=== PATIENT | male | born 1950 | race African-American/Black ===

== ENCOUNTER 2019-06-15 08:00 | Inpatient (IN) ==
[2019-06-15] MEDS ORDERED: DEXTROSE 10% 250 ML BAG IV PRN (09:16)
[2019-06-15] MEDS ORDERED: GLUCAGON 1 MG VIAL IM PRN ×2 (09:16)
[2019-06-15] MEDS ORDERED: DEXTROSE 50% 25 GM/50 ML VIAL IV PRN (09:16)
[2019-06-15] MEDS ORDERED: oxyCODONE/ACETAMINOPHEN 5-325 MG TABLET PO PRN (09:25)
[2019-06-15] MEDS ORDERED: SODIUM CHLORIDE 0.9% 1,000 ML IV SCH (09:30)
[2019-06-15 11:26] LABS: Basophils % 0.4 % (0.0-0.8); Eosinophils % 0.4 % (0.00-10.9); Hematocrit 32.5 VOL% (42.0-52.0); Hemoglobin 9.8 GM/DL (14.0-18.0); Immature Granulocytes % 0.6 %; Immature Granulocytes Absolute 0.06 #; Lymphocytes # 0.8 10*3/uL (1.4-4.0); Lymphocytes % 7.5 % (21.2-54.2); Mean Corpuscular HGB Conc 30.2 GM/DL (32-36); Mean Corpuscular Volume 83.5 FL (87-102); Mean Platelet Volume 9.9 FL (9.6-12.0); Monocytes % 10.1 % (1.7-12.7); NRBC # 0.02 10*3/uL; Platelet Count 334 T/CUMM (130-400); Red Blood Count 3.89 MC/CUMM (3.8-5.5); Red Cell Distribution Width 15.8 % (9.3-17.3); White Blood Count 10.6 T/CUMM (4-12)
[2019-06-15 11:50] LABS: Albumin 2.1 G/DL (3.4-5.0); Bilirubin,Total 0.5 MG/DL (0.2-1.0); Calcium 8.6 MG/DL (8.5-10.1); Osmolality,Calculated 289.8 MOS/KG (273-304); Total Protein 7.2 G/DL (6.4-8.3)
[2019-06-15 12:56] LABS: ABG Base Excess 0.8 MMOL/L (-2.5-2.5); ABG HCO3 25.1 MMOL/L (20-26); ABG Oxygen Saturation 95.4 % (95-100); ABG PCO2 37.4 MM HG (35-48); ABG PH 7.431 (7.35-7.45); ABG PO2 76.2 MM HG (80-95); ABG TCO2 22.7 MMOL/L (23-27); Allen Test Positive; Pt O2 Delivery Device BIPAP
[2019-06-15] MEDS ORDERED: AMPICILLIN/SULBACTAM 3,000 MG in SODIUM CHLORIDE 0.9% 100 ML IV SCH (15:00)
[2019-06-15] MEDS: GABAPENTIN 300 MG CAPSULE PO SCH ×2 (19:07→21:53)
[2019-06-15] MEDS: AMPICILLIN/SULBACTAM 3,000 MG in SODIUM CHLORIDE 0.9% 100 ML IV SCH (21:53)
[2019-06-15] MEDS: LATANOPROST 0.005% OPH SOLN 2.5 ML BOTTLE BOTH EYES SCH (21:53)
[2019-06-16] MEDS: AMPICILLIN/SULBACTAM 3,000 MG in SODIUM CHLORIDE 0.9% 100 ML IV SCH ×4 (03:30→21:12)
[2019-06-16] MEDS: GABAPENTIN 300 MG CAPSULE PO SCH ×3 (08:48→21:14)
[2019-06-16] MEDS: lisinopriL 20 MG TABLET PO SCH (08:48)
[2019-06-16] MEDS: amLODIPine 10 MG TABLET PO SCH (08:48)
[2019-06-16] MEDS: ATORVASTATIN 10 MG TABLET PO SCH (08:48)
[2019-06-16] MEDS: CHLORHEXIDINE 4% SOLN 118 ML BOTTLE TOP SCH ×2 (14:11→21:12)
[2019-06-16 16:26] LABS: Troponin I 8.04 NG/ML (0.00-0.045)
[2019-06-16] MEDS: LATANOPROST 0.005% OPH SOLN 2.5 ML BOTTLE BOTH EYES SCH (21:13)
[2019-06-16] MEDS: CHLORHEXIDINE 0.12% ORAL RINSE 60 ML BOTTLE SWISH/SPIT SCH (21:14)
[2019-06-16] MEDS ORDERED: ETOMIDATE 20 MG/10 ML VIAL IV ONE (23:49)
[2019-06-17] MEDS: AMPICILLIN/SULBACTAM 3,000 MG in SODIUM CHLORIDE 0.9% 100 ML IV SCH ×4 (03:25→21:14)
[2019-06-17 05:45] LABS: Basophils % 0.2 % (0.0-0.8); Eosinophils # 0.1 10*3/uL (0.0-0.87); Eosinophils % 1.2 % (0.00-10.9); Hematocrit 31.8 VOL% (42.0-52.0); Hemoglobin 9.3 GM/DL (14.0-18.0); Immature Granulocytes % 0.6 %; Immature Granulocytes Absolute 0.06 #; Lymphocytes # 0.7 10*3/uL (1.4-4.0); Lymphocytes % 7.3 % (21.2-54.2); Mean Corpuscular HGB Conc 29.2 GM/DL (32-36); Mean Corpuscular Volume 86.2 FL (87-102); Mean Platelet Volume 10.3 FL (9.6-12.0); Monocytes % 8.5 % (1.7-12.7); Neutrophils % 82.2 % (38.7-73.9); Platelet Count 254 T/CUMM (130-400); Red Blood Count 3.69 MC/CUMM (3.8-5.5); Red Cell Distribution Width 15.9 % (9.3-17.3); White Blood Count 9.2 T/CUMM (4-12)
[2019-06-17 06:03] LABS: Calcium 8.4 MG/DL (8.5-10.1); Osmolality,Calculated 296.8 MOS/KG (273-304)
[2019-06-17] MEDS ORDERED: CEFUROXIME INJ 1,500 MG in SODIUM CHLORIDE 0.9% 100 ML IV ONE (06:30)
[2019-06-17] MEDS: amLODIPine 10 MG TABLET PO SCH (09:33)
[2019-06-17] MEDS: CHLORHEXIDINE 4% SOLN 118 ML BOTTLE TOP SCH (09:33)
[2019-06-17] MEDS: ATORVASTATIN 10 MG TABLET PO SCH (09:33)
[2019-06-17] MEDS: lisinopriL 20 MG TABLET PO SCH (09:33)
[2019-06-17] MEDS: GABAPENTIN 300 MG CAPSULE PO SCH ×3 (09:33→20:56)
[2019-06-17] MEDS: CHLORHEXIDINE 0.12% ORAL RINSE 60 ML BOTTLE SWISH/SPIT SCH ×2 (09:34→20:56)
[2019-06-17] MEDS: SODIUM CHLORIDE 0.9% 1,000 ML IV SCH (09:34)
[2019-06-17] MEDS: LATANOPROST 0.005% OPH SOLN 2.5 ML BOTTLE BOTH EYES SCH (20:56)
[2019-06-18] MEDS: AMPICILLIN/SULBACTAM 3,000 MG in SODIUM CHLORIDE 0.9% 100 ML IV SCH ×3 (03:55→15:40)
[2019-06-18] MEDS ORDERED: VANCOMYCIN 500 MG VIAL ONE (05:45)
[2019-06-18] MEDS ORDERED: PAPAVERINE 60 MG/2 ML VIAL ONE (05:45)
[2019-06-18] MEDS ORDERED: VANCOMYCIN 1,000 MG VIAL ONE ×3 (05:46→10:53)
[2019-06-18] MEDS ORDERED: FAMOTIDINE 20 MG TABLET PO ONE (06:00)
[2019-06-18] MEDS ORDERED: DIAZEPAM 5 MG TABLET PO ONE (06:00)
[2019-06-18] MEDS ORDERED: CEFUROXIME INJ 1,500 MG in SYRINGE 1 EACH IV ONE (06:00)
[2019-06-18 07:52] LABS: VBG PH 7.414
[2019-06-18 07:53] LABS: VBG Base Excess 1.6 MEQ/L (0-4); VBG HCO3 25.3 MEQ/L (24-28)
[2019-06-18 07:54] LABS: VBG Oxygen Saturation 62.6 %
[2019-06-18 07:55] LABS: Hematocrit Heart Surgery 27.4 PERCENT (42-52); Hemoglobin Heart Surgery 8.8 G/DL (14.0-18.0); PH Patient Temp Venous 7.414; Potassium Heart/CVR 3.8 MMOL/L (3.5-5.1); VBG Inspired Oxygen 61.3 PERCENT (0-100)
[2019-06-18] MEDS: lisinopriL 20 MG TABLET PO SCH (09:00)
[2019-06-18] MEDS ORDERED: SODIUM HYPOCHLORITE 0.25% IRRIG 473 ML BOTTLE TOP SCH (09:00)
[2019-06-18] MEDS ORDERED: CHLORHEXIDINE 4% SOLN 118 ML BOTTLE TOP SCH (09:00)
[2019-06-18] MEDS: amLODIPine 10 MG TABLET PO SCH (09:00)
[2019-06-18] MEDS: SODIUM CHLORIDE 0.9% 1,000 ML IV SCH (09:00)
[2019-06-18] MEDS: GABAPENTIN 300 MG CAPSULE PO SCH (09:00)
[2019-06-18] MEDS: CHLORHEXIDINE 0.12% ORAL RINSE 60 ML BOTTLE SWISH/SPIT SCH ×2 (09:00→22:02)
[2019-06-18] MEDS: ATORVASTATIN 10 MG TABLET PO SCH (09:00)
[2019-06-18 09:09] LABS: Hematocrit Heart Surgery 17.4 PERCENT (42-52); Hemoglobin Heart Surgery 5.5 G/DL (14.0-18.0); PCO2 Patient Temp Venous 27.1 MM HG; PH Patient Temp Venous 7.578; PO2 Patient Temp Venous 31.4 MM HG; Potassium Heart/CVR 4.4 MMOL/L (3.5-5.1); VBG Base Excess 3.5 MEQ/L (0-4); VBG HCO3 27.4 MEQ/L (24-28); VBG Oxygen Saturation 77.3 %; VBG PCO2 31.3 MMHG (41-51); VBG PH 7.532; VBG PO2 38.7 MMHG (17-40)
[2019-06-18 09:30] LABS: Hematocrit Heart Surgery 18.5 PERCENT (42-52); PCO2 Patient Temp Venous 31.2 MM HG; PH Patient Temp Venous 7.538; Potassium Heart/CVR 4.1 MMOL/L (3.5-5.1); VBG HCO3 27.9 MEQ/L (24-28); VBG Oxygen Saturation 80.4 %; VBG PCO2 34.4 MMHG (41-51); VBG PH 7.508; VBG PO2 41.3 MMHG (17-40)
[2019-06-18 09:31] LABS: Hemoglobin Heart Surgery 5.9 G/DL (14.0-18.0)
[2019-06-18] MEDS ORDERED: SODIUM BICARBONATE 50 MEQ/50 ML VIAL IV ONE ×9 (10:15→21:28)
[2019-06-18] MEDS ORDERED: DEXTROSE 5% KCL 20 MEQ 20 MEQ/1,000 ML BAG IV ONE (10:15)
[2019-06-18] MEDS ORDERED: MANNITOL 100 GM/500 ML BAG IV ONE (10:15)
[2019-06-18] MEDS ORDERED: LIDOCAINE 2% 5 ML VIAL ONE (10:15)
[2019-06-18] MEDS ORDERED: FUROSEMIDE 20 MG/2 ML VIAL ONE (10:16)
[2019-06-18] MEDS ORDERED: methylPREDNISolone SOD SUC 1,000 MG/8 ML VIAL ONE (10:16)
[2019-06-18] MEDS ORDERED: PROTAMINE SULFATE 250 MG/25 ML VIAL IV ONE (10:16)
[2019-06-18] MEDS ORDERED: PROTAMINE SULFATE 50 MG/5 ML VIAL IV ONE (10:16)
[2019-06-18] MEDS ORDERED: ALBUMIN 25% 25 GM/100 ML VIAL IV ONE (10:16)
[2019-06-18] MEDS ORDERED: HEPARIN 10,000 UNIT/10 ML VIAL ONE (10:16)
[2019-06-18] MEDS ORDERED: MAGNESIUM SULFATE 5 GM/10 ML VIAL IV ONE (10:16)
[2019-06-18] MEDS ORDERED: NITROPRUSSIDE 50 MG/2 ML VIAL ONE (10:21)
[2019-06-18] MEDS ORDERED: PHENYLEPHRINE DRIP 40 MG/250 ML PREMIX IV ONE (10:21)
[2019-06-18] MEDS ORDERED: CALCIUM CHLORIDE 1,000 MG/10 ML SYRINGE IV ONE ×2 (10:21→14:10)
[2019-06-18] MEDS ORDERED: POTASSIUM CHLORIDE RIDER 100 ML IV ONE (10:21)
[2019-06-18 10:23] LABS: ABG Base Excess 1.7 MMOL/L (-2.5-2.5); ABG PCO2 27.2 MM HG (35-48); ABG PH 7.548 (7.35-7.45); Glucose Heart Surgery 306 MG/DL (74-106); Hematocrit Heart Surgery 24.6 PERCENT (42-52); Hemoglobin Heart Surgery 7.9 G/DL (14.0-18.0); Ionized Calcium Arterial 1.33 MMOL/L (1.21-1.46); PCO2 Patient Temp Arterial 27.2 MMHG; PH Patient Temp Arterial 7.548; Patient Temperature 37 CELCIUS; Potassium Heart/CVR 3.9 MMOL/L (3.5-5.1); Sodium Heart/CVR 144 MMOL/L (135-145)
[2019-06-18] MEDS: LACTATED RINGERS 250 ML IV PRN ×4 (11:25→12:00)
[2019-06-18] MEDS: PHENYLEPHRINE DRIP 40 MG/250 ML PREMIX IV PRN ×3 (11:25→15:30)
[2019-06-18] MEDS: DOBUTamine 500 MG/250 ML PREMIX IV PRN (11:25)
[2019-06-18] MEDS: SODIUM CHLORIDE 0.45% 1,000 ML IV SCH (11:25)
[2019-06-18] MEDS ORDERED: ONDANSETRON 4 MG/2 ML VIAL IV PRN (11:46)
[2019-06-18] MEDS ORDERED: MAGNESIUM SULF RIDER 4 GM in PREMIX 1 EACH IV PRN (11:46)
[2019-06-18] MEDS ORDERED: POTASSIUM CHLORIDE RIDER 10 MEQ in PREMIX 1 EACH IV PRN (11:46)
[2019-06-18] MEDS ORDERED: NITROPRUSSIDE 100 MG in DEXTROSE 5% 250 ML IV PRN (11:46)
[2019-06-18] MEDS ORDERED: ACETAMINOPHEN 650 MG SUPP RECTAL PRN (11:46)
[2019-06-18] MEDS ORDERED: VECURONIUM 10 MG VIAL IV PRN ×2 (11:46)
[2019-06-18] MEDS ORDERED: DEXTROSE 10% 250 ML BAG IV PRN (11:46)
[2019-06-18] MEDS ORDERED: MAGNESIUM SULF RIDER 2 GM in PREMIX 1 EACH IV PRN (11:46)
[2019-06-18] MEDS ORDERED: CALCIUM CHLORIDE 1,000 MG/10 ML SYRINGE IV PRN (11:46)
[2019-06-18] MEDS ORDERED: MIDAZOLAM 10 MG/2 ML VIAL IV PRN (11:46)
[2019-06-18] MEDS ORDERED: SODIUM CHLORIDE 0.45% 1,000 ML IV SCH (11:46)
[2019-06-18] MEDS ORDERED: MORPHINE 10 MG/1 ML VIAL IV PRN (11:46)
[2019-06-18] MEDS ORDERED: INSULIN REGULAR 100 UNIT/ML IV ONE (11:46)
[2019-06-18] MEDS ORDERED: MIDAZOLAM 2 MG/2 ML VIAL IV PRN (11:46)
[2019-06-18] MEDS ORDERED: CHLORHEXIDINE 4% SOLN 118 ML BOTTLE TOP PRN (11:46)
[2019-06-18] MEDS ORDERED: MORPHINE 4 MG/1 ML VIAL IV PRN (11:46)
[2019-06-18] MEDS: ALBUMIN 5% 12.5 GM in PREMIX 1 EACH IV PRN ×2 (12:00→12:10)
[2019-06-18] MEDS ORDERED: ALBUMIN 5% 12.5 GM/250 ML VIAL IV ONE (12:00)
[2019-06-18 12:12] LABS: ABG Base Excess -3.9 MMOL/L (-2.5-2.5); ABG HCO3 21.1 MMOL/L (20-26); ABG Oxygen Saturation 99.7 % (95-100); ABG PCO2 35.9 MM HG (35-48); ABG PH 7.373 (7.35-7.45); ABG TCO2 19.8 MMOL/L (23-27); Glucose Heart Surgery 280 MG/DL (74-106); Hemoglobin Heart Surgery 6.7 G/DL (14.0-18.0); Potassium Heart/CVR 3.5 MMOL/L (3.5-5.1)
[2019-06-18] MEDS ORDERED: DOBUTamine 500 MG/250 ML PREMIX IV ONE (12:27)
[2019-06-18] MEDS ORDERED: CALCIUM CHLORIDE 1,000 MG/10 ML VIAL IV ONE (12:27)
[2019-06-18] MEDS ORDERED: SUFentanil 250 MCG/5 ML AMP ONE (12:27)
[2019-06-18] MEDS ORDERED: PHENYLEPHRINE DRIP 20 MG/250 ML PREMIX IV ONE (12:27)
[2019-06-18] MEDS ORDERED: SEVOFLURANE 1 UNIT/15 MINUTE INH ONE (12:27)
[2019-06-18 12:28] LABS: CKMB % 4.3 %
[2019-06-18] MEDS ORDERED: AMINOCAPROIC ACID 5,000 MG/20 ML VIAL ONE (12:28)
[2019-06-18] MEDS ORDERED: MIDAZOLAM 10 MG/2 ML VIAL ONE (12:28)
[2019-06-18] MEDS ORDERED: NITROGLYCERIN DRIP 50 MG/250 ML BOTTLE IV ONE (12:28)
[2019-06-18] MEDS ORDERED: ETOMIDATE 40 MG/20 ML VIAL IV ONE (12:28)
[2019-06-18] MEDS ORDERED: AMIODARONE 150 MG/3 ML VIAL ONE (12:28)
[2019-06-18] MEDS ORDERED: VECURONIUM 10 MG VIAL IV ONE (12:28)
[2019-06-18] MEDS ORDERED: LACTATED RINGERS 1,000 ML IV ONE ×2 (12:29→13:00)
[2019-06-18] MEDS ORDERED: SODIUM CHLORIDE 0.9% 250 ML IV ONE (12:29)
[2019-06-18] MEDS ORDERED: SODIUM CHLORIDE 0.9% 100 ML IV ONE (12:29)
[2019-06-18] MEDS ORDERED: SODIUM CHLORIDE 0.9% 1,000 ML IV ONE (12:29)
[2019-06-18 12:34] LABS: Albumin 1.8 G/DL (3.4-5.0); Bilirubin,Total 1.2 MG/DL (0.2-1.0); Calcium 8.6 MG/DL (8.5-10.1); Osmolality,Calculated 300.6 MOS/KG (273-304); Total Protein 4.7 G/DL (6.4-8.3)
[2019-06-18 12:38] LABS: Troponin I 8.03 NG/ML (0.00-0.045)
[2019-06-18] MEDS ORDERED: HEPARIN/NACL 0.9% 2 UNITS/ML 500 ML IV ONE (12:47)
[2019-06-18] MEDS ORDERED: methylPREDNISolone SOD SUC 125 MG/2 ML VIAL ONE (13:00)
[2019-06-18] MEDS ORDERED: diphenhydrAMINE 50 MG/1 ML VIAL IV ONE (13:00)
[2019-06-18] MEDS ORDERED: LACTATED RINGERS 1,000 ML IV PRN (13:00)
[2019-06-18] MEDS ORDERED: methylPREDNISolone SOD SUC 125 MG/2 ML VIAL IV ONE ×2 (13:00→14:45)
[2019-06-18] MEDS ORDERED: diphenhydrAMINE 50 MG/1 ML VIAL ONE (13:01)
[2019-06-18] MEDS ORDERED: EPINEPHrine 1 MG/10 ML SYRINGE ONE (13:02)
[2019-06-18] MEDS ORDERED: EPINEPHrine 1 MG/ML VIAL ONE (13:05)
[2019-06-18 13:20] LABS: ABG Base Excess -8.4 MMOL/L (-2.5-2.5); ABG HCO3 17.6 MMOL/L (20-26); ABG Oxygen Saturation 96.6 % (95-100); ABG PCO2 42.4 MM HG (35-48); ABG PH 7.246 (7.35-7.45); ABG PO2 93.1 MM HG (80-95); ABG TCO2 17.4 MMOL/L (23-27); Glucose Heart Surgery 308 MG/DL (74-106); Hematocrit Heart Surgery 26.3 PERCENT (42-52); Hemoglobin Heart Surgery 8.4 G/DL (14.0-18.0); Potassium Heart/CVR 3.6 MMOL/L (3.5-5.1)
[2019-06-18] MEDS ORDERED: EPINEPHrine 1 MG/10 ML SYRINGE IV ONE (13:42)
[2019-06-18 13:49] LABS: Hematocrit 25.9 VOL% (42.0-52.0); Immature Granulocytes % 2.1 %; Immature Granulocytes Absolute 0.03 #; Lymphocytes # 0.2 10*3/uL (1.4-4.0); Lymphocytes % 15.6 % (21.2-54.2); Mean Corpuscular Volume 85.2 FL (87-102); Mean Platelet Volume 9.3 FL (9.6-12.0); Monocytes % 2.1 % (1.7-12.7); NRBC # 0.06 10*3/uL; Neutrophils % 80.2 % (38.7-73.9); Platelet Count 139 T/CUMM (130-400); Red Blood Count 3.04 MC/CUMM (3.8-5.5); Red Cell Distribution Width 15.9 % (9.3-17.3); White Blood Count 1.4 T/CUMM (4-12)
[2019-06-18] MEDS ORDERED: AMIODARONE 450 MG/9 ML VIAL IV ONE (13:55)
[2019-06-18 13:56] LABS: Hemoglobin 8.3 GM/DL (14.0-18.0)
[2019-06-18] MEDS ORDERED: AMIODARONE INJ 450 MG in DEXTROSE 5% 241 ML IV SCH (14:00)
[2019-06-18 14:10] LABS: ABG Base Excess -4.6 MMOL/L (-2.5-2.5); ABG HCO3 20.5 MMOL/L (20-26); ABG Oxygen Saturation 93.6 % (95-100); ABG PCO2 47.3 MM HG (35-48); ABG PH 7.278 (7.35-7.45); ABG PO2 72.5 MM HG (80-95); ABG TCO2 20.7 MMOL/L (23-27); Glucose Heart Surgery 310 MG/DL (74-106); Hemoglobin Heart Surgery 8.7 G/DL (14.0-18.0); INR 1.7; PT Patient Result 17.8 SECS (9.8-11.9); Partial Thromboplastin Time 40.7 SECS (20.8-36.0); Potassium Heart/CVR 3.2 MMOL/L (3.5-5.1)
[2019-06-18] MEDS: POTASSIUM CHLORIDE RIDER 20 MEQ in PREMIX 1 EACH IV PRN ×4 (14:20→21:32)
[2019-06-18 14:56] LABS: ABG Base Excess -8.6 MMOL/L (-2.5-2.5); ABG HCO3 17.4 MMOL/L (20-26); ABG Oxygen Saturation 94.2 % (95-100); ABG PCO2 39.7 MM HG (35-48); ABG PH 7.262 (7.35-7.45); ABG PO2 76.5 MM HG (80-95); ABG TCO2 16.9 MMOL/L (23-27); Glucose Heart Surgery 304 MG/DL (74-106); Hematocrit Heart Surgery 25.3 PERCENT (42-52); Hemoglobin Heart Surgery 8.1 G/DL (14.0-18.0); Potassium Heart/CVR 3.8 MMOL/L (3.5-5.1)
[2019-06-18] MEDS: SODIUM BICARB INJ 150 MEQ in STERILE WATER INJ 850 ML IV SCH ×2 (15:20→22:01)
[2019-06-18 15:43] LABS: Band Neutrophils 22 % (0-10); Lymphocytes 18 % (20-55); Nucleated Red Blood Cells 3 (0-5); Platelet Estimate Adequate; Segmented Neutrophils 54 % (50-85); Total Cells Counted 100
[2019-06-18 15:44] LABS: Microcytosis Slight; Polychromasia 1+
[2019-06-18] MEDS: INSULIN REGULAR DRIP 100 ML IV SCH ×3 (15:52→23:12)
[2019-06-18] MEDS ORDERED: GENTAMICIN INJ 120 MG in PREMIX 1 EACH IV SCH (16:00)
[2019-06-18] MEDS: INSULIN REGULAR 100 UNIT/ML IV PRN ×5 (16:17→23:13)
[2019-06-18] MEDS: PIPERACILLIN/TAZOBACTAM 3,375 MG in SODIUM CHLORIDE 0.9% 100 ML IV SCH (16:30)
[2019-06-18] MEDS ORDERED: FUROSEMIDE 40 MG/4 ML VIAL IV ONE ×2 (16:57→22:00)
[2019-06-18] MEDS: PHENYLEPHRINE INJ 160 MG in SODIUM CHLORIDE 0.9% 234 ML IV PRN (17:20)
[2019-06-18] MEDS: CLINDAMYCIN INJ 600 MG in PREMIX 1 EACH IV SCH ×2 (17:25→23:28)
[2019-06-18 17:39] LABS: ABG Base Excess -13.6 MMOL/L (-2.5-2.5); ABG HCO3 13.8 MMOL/L (20-26); ABG Oxygen Saturation 90.1 % (95-100); ABG PCO2 41.5 MM HG (35-48); ABG PO2 72.1 MM HG (80-95); ABG TCO2 13.9 MMOL/L (23-27); Glucose Heart Surgery 328 MG/DL (74-106); Hematocrit Heart Surgery 29.7 PERCENT (42-52); Hemoglobin Heart Surgery 9.6 G/DL (14.0-18.0); Potassium Heart/CVR 3.7 MMOL/L (3.5-5.1)
[2019-06-18 17:41] LABS: ABG PH 7.155 (7.35-7.45)
[2019-06-18 18:54] LABS: ABG HCO3 14.9 MMOL/L (20-26); ABG Oxygen Saturation 91.5 % (95-100); ABG PCO2 33.5 MM HG (35-48); ABG PH 7.244 (7.35-7.45); ABG PO2 67.5 MM HG (80-95); ABG TCO2 13.6 MMOL/L (23-27); Glucose Heart Surgery 292 MG/DL (74-106); Hematocrit Heart Surgery 28.4 PERCENT (42-52); Hemoglobin Heart Surgery 9.2 G/DL (14.0-18.0); Potassium Heart/CVR 3.4 MMOL/L (3.5-5.1)
[2019-06-18] MEDS: NOREPINEPHRINE 16 MG in SODIUM CHLORIDE 0.9% 234 ML IV PRN (19:15)
[2019-06-18] MEDS: CEFUROXIME INJ 1,500 MG in SYRINGE 1 EACH IV SCH (20:12)
[2019-06-18 21:22] LABS: ABG Base Excess -8.8 MMOL/L (-2.5-2.5); ABG HCO3 17.3 MMOL/L (20-26); ABG Oxygen Saturation 95.2 % (95-100); ABG PCO2 32.7 MM HG (35-48); ABG PH 7.313 (7.35-7.45); ABG PO2 76.7 MM HG (80-95); ABG TCO2 15.2 MMOL/L (23-27); Glucose Heart Surgery 255 MG/DL (74-106); Hematocrit Heart Surgery 31.4 PERCENT (42-52); Hemoglobin Heart Surgery 10.1 G/DL (14.0-18.0); Potassium Heart/CVR 3.2 MMOL/L (3.5-5.1)
[2019-06-18 22:01] LABS: CKMB % 5.5 %
[2019-06-18 22:06] LABS: Troponin I 42.2 NG/ML (0.00-0.045)
[2019-06-18] MEDS: AMIODARONE INJ 450 MG in DEXTROSE 5% 241 ML IV SCH (22:06)
[2019-06-18 23:07] LABS: ABG Base Excess -5.4 MMOL/L (-2.5-2.5); ABG Oxygen Saturation 96.5 % (95-100); ABG PCO2 31.8 MM HG (35-48); ABG PH 7.382 (7.35-7.45); ABG PO2 78.8 MM HG (80-95); ABG TCO2 17.3 MMOL/L (23-27); Glucose Heart Surgery 230 MG/DL (74-106); Hematocrit Heart Surgery 30.3 PERCENT (42-52); Hemoglobin Heart Surgery 9.8 G/DL (14.0-18.0); Potassium Heart/CVR 3.4 MMOL/L (3.5-5.1)
[2019-06-19] MEDS: PIPERACILLIN/TAZOBACTAM 3,375 MG in SODIUM CHLORIDE 0.9% 100 ML IV SCH ×3 (00:09→17:12)
[2019-06-19] MEDS: INSULIN REGULAR 100 UNIT/ML IV PRN ×2 (00:09→02:20)
[2019-06-19] MEDS: PHENYLEPHRINE INJ 160 MG in SODIUM CHLORIDE 0.9% 234 ML IV PRN ×3 (00:48→20:54)
[2019-06-19 01:12] LABS: ABG Base Excess -2.8 MMOL/L (-2.5-2.5); ABG HCO3 22.1 MMOL/L (20-26); ABG Oxygen Saturation 96.9 % (95-100); ABG PCO2 30.8 MM HG (35-48); ABG PH 7.435 (7.35-7.45); ABG PO2 78.7 MM HG (80-95); ABG TCO2 18.8 MMOL/L (23-27); Glucose Heart Surgery 192 MG/DL (74-106); Hematocrit Heart Surgery 30.4 PERCENT (42-52); Hemoglobin Heart Surgery 9.8 G/DL (14.0-18.0); Potassium Heart/CVR 3.4 MMOL/L (3.5-5.1)
[2019-06-19] MEDS: POTASSIUM CHLORIDE RIDER 20 MEQ in PREMIX 1 EACH IV PRN ×3 (01:36→05:26)
[2019-06-19] MEDS ORDERED: FUROSEMIDE 40 MG/4 ML VIAL IV ONE ×3 (02:00→16:57)
[2019-06-19] MEDS: INSULIN REGULAR DRIP 100 ML IV SCH ×2 (02:18→12:21)
[2019-06-19 03:07] LABS: Basophils % 0.2 % (0.0-0.8); Hematocrit 30.2 VOL% (42.0-52.0); Hemoglobin 9.7 GM/DL (14.0-18.0); Immature Granulocytes % 1.3 %; Immature Granulocytes Absolute 0.21 #; Lymphocytes # 0.1 10*3/uL (1.4-4.0); Lymphocytes % 0.6 % (21.2-54.2); Mean Corpuscular HGB Conc 32.1 GM/DL (32-36); Mean Corpuscular Volume 84.1 FL (87-102); Mean Platelet Volume 9.7 FL (9.6-12.0); Monocytes % 0.4 % (1.7-12.7); NRBC # 0.51 10*3/uL; Neutrophils % 97.5 % (38.7-73.9); Platelet Count 106 T/CUMM (130-400); Red Blood Count 3.59 MC/CUMM (3.8-5.5); Red Cell Distribution Width 16.1 % (9.3-17.3); White Blood Count 16.1 T/CUMM (4-12)
[2019-06-19 03:08] LABS: ABG Base Excess -1.1 MMOL/L (-2.5-2.5); ABG HCO3 23.4 MMOL/L (20-26); ABG Oxygen Saturation 96.9 % (95-100); ABG PCO2 31.2 MM HG (35-48); ABG PH 7.457 (7.35-7.45); ABG PO2 77.8 MM HG (80-95); Glucose Heart Surgery 144 MG/DL (74-106); Hematocrit Heart Surgery 30.6 PERCENT (42-52); Hemoglobin Heart Surgery 9.9 G/DL (14.0-18.0)
[2019-06-19 03:25] LABS: Albumin 1.7 G/DL (3.4-5.0); Bilirubin,Direct 3.12 MG/DL (0.0-0.20); Bilirubin,Total 4.1 MG/DL (0.2-1.0); Calcium 8.1 MG/DL (8.5-10.1); Osmolality,Calculated 305.9 MOS/KG (273-304); Total Protein 4.3 G/DL (6.4-8.3)
[2019-06-19 03:43] LABS: CKMB % 5.8 %
[2019-06-19] MEDS: SODIUM BICARB INJ 150 MEQ in STERILE WATER INJ 850 ML IV SCH ×4 (04:27→17:48)
[2019-06-19 05:12] LABS: ABG Base Excess 0.6 MMOL/L (-2.5-2.5); ABG Oxygen Saturation 96.6 % (95-100); ABG PCO2 31.7 MM HG (35-48); ABG PH 7.479 (7.35-7.45); ABG PO2 74.9 MM HG (80-95); ABG TCO2 21.4 MMOL/L (23-27); Glucose Heart Surgery 89 MG/DL (74-106); Hematocrit Heart Surgery 30.8 PERCENT (42-52); Potassium Heart/CVR 3.8 MMOL/L (3.5-5.1)
[2019-06-19] MEDS: CLINDAMYCIN INJ 600 MG in PREMIX 1 EACH IV SCH ×3 (05:26→18:04)
[2019-06-19] MEDS: NOREPINEPHRINE 16 MG in SODIUM CHLORIDE 0.9% 234 ML IV PRN ×3 (05:27→19:30)
[2019-06-19 05:37] LABS: Band Neutrophils 8 % (0-10); Lymphocytes 1 % (20-55); Nucleated Red Blood Cells 4 (0-5); Platelet Estimate Decreased; Segmented Neutrophils 91 % (50-85); Total Cells Counted 100
[2019-06-19 05:38] LABS: Hypochromasia 1+; Microcytosis Slight; Ovalocytes Slight
[2019-06-19] MEDS: DEXTROSE 10% 250 ML BAG IV PRN ×5 (06:43→19:27)
[2019-06-19] MEDS: CEFUROXIME INJ 1,500 MG in SYRINGE 1 EACH IV SCH ×2 (07:04→20:26)
[2019-06-19] MEDS: ALBUMIN 5% 12.5 GM in PREMIX 1 EACH IV PRN ×4 (07:19→20:17)
[2019-06-19 07:50] LABS: ABG Base Excess 0.9 MMOL/L (-2.5-2.5); ABG HCO3 23.7 MMOL/L (20-26); ABG Oxygen Saturation 94.4 % (95-100); ABG PH 7.501 (7.35-7.45); ABG PO2 73.3 MM HG (80-95); ABG TCO2 24.6 MMOL/L (23-27); Glucose Heart Surgery 81 MG/DL (74-106); Hemoglobin Heart Surgery 9.9 G/DL (14.0-18.0); Potassium Heart/CVR 4.1 MMOL/L (3.5-5.1)
[2019-06-19] MEDS: CHLORHEXIDINE 0.12% ORAL RINSE 60 ML BOTTLE SWISH/SPIT SCH ×2 (08:51→23:10)
[2019-06-19] MEDS ORDERED: PANTOPRAZOLE 40 MG VIAL IV SCH (09:00)
[2019-06-19] MEDS ORDERED: PHENYLEPHRINE DRIP 0 MG/0 ML PREMIX IV ONE (09:45)
[2019-06-19 11:06] LABS: ABG HCO3 25.3 MMOL/L (20-26); ABG Oxygen Saturation 94.2 % (95-100); ABG PCO2 33.5 MM HG (35-48); ABG PH 7.468 (7.35-7.45); ABG PO2 64.4 MM HG (80-95); Glucose Heart Surgery 67 MG/DL (74-106); Hematocrit Heart Surgery 31.2 PERCENT (42-52); Hemoglobin Heart Surgery 10.1 G/DL (14.0-18.0)
[2019-06-19] MEDS: AMIODARONE INJ 450 MG in DEXTROSE 5% 241 ML IV SCH (12:35)
[2019-06-19 14:53] LABS: ABG Base Excess -0.9 MMOL/L (-2.5-2.5); ABG HCO3 23.6 MMOL/L (20-26); ABG Oxygen Saturation 97.3 % (95-100); ABG PH 7.453 (7.35-7.45); ABG TCO2 20.4 MMOL/L (23-27); Glucose Heart Surgery 122 MG/DL (74-106); Hematocrit Heart Surgery 30.4 PERCENT (42-52); Hemoglobin Heart Surgery 9.8 G/DL (14.0-18.0); Potassium Heart/CVR 4.1 MMOL/L (3.5-5.1)
[2019-06-19] MEDS ORDERED: VECURONIUM 10 MG VIAL IV ONE (15:01)
[2019-06-19] MEDS ORDERED: FUROSEMIDE 40 MG/4 ML VIAL ONE (16:45)
[2019-06-19 17:17] LABS: ABG Base Excess -1.7 MMOL/L (-2.5-2.5); ABG HCO3 21.2 MMOL/L (20-26); ABG Oxygen Saturation 95.1 % (95-100); ABG PCO2 29.5 MM HG (35-48); ABG PH 7.474 (7.35-7.45); ABG PO2 77.8 MM HG (80-95); ABG TCO2 22.1 MMOL/L (23-27); Glucose Heart Surgery 68 MG/DL (74-106); Hemoglobin Heart Surgery 9.8 G/DL (14.0-18.0); Potassium Heart/CVR 4.1 MMOL/L (3.5-5.1)
[2019-06-19] MEDS: DOBUTamine 500 MG/250 ML PREMIX IV PRN (17:47)
[2019-06-19 19:38] LABS: ABG Base Excess -3.3 MMOL/L (-2.5-2.5); ABG HCO3 21.6 MMOL/L (20-26); ABG Oxygen Saturation 94.8 % (95-100); ABG PCO2 32.9 MM HG (35-48); ABG PH 7.408 (7.35-7.45); ABG PO2 72.2 MM HG (80-95); ABG TCO2 19.1 MMOL/L (23-27); Glucose Heart Surgery 204 MG/DL (74-106); Hematocrit Heart Surgery 28.6 PERCENT (42-52); Hemoglobin Heart Surgery 9.2 G/DL (14.0-18.0); Potassium Heart/CVR 4.4 MMOL/L (3.5-5.1)
[2019-06-19] MEDS: SODIUM CHLORIDE 0.45% 1,000 ML IV SCH (19:54)
[2019-06-19] MEDS ORDERED: HEPARIN/NACL 0.9% 2 UNITS/ML 500 ML IV ONE (20:01)
[2019-06-19] MEDS ORDERED: LATANOPROST 0.005% OPH SOLN 2.5 ML BOTTLE BOTH EYES SCH (21:00)
[2019-06-19 21:05] VITALS: BP 82/51
== END 2019-06-19 21:35 | disposition expired | DRG 235 ==
LOC: N.ICU 10:56 → N.CVR 06-18 11:06